=== PATIENT | female | born 1945 | race Caucasian/White ===

== ENCOUNTER 2025-07-18 12:36 | Emergency (ER) | payer MEDICARE, SELFPAY ==
--- NOTE | ~2025-07-18 | XR_ITS ---
EXAMINATION: XR pelvis 1-2V, 07/18/2025 13:05 WEB SITE ADMIN HISTORY: Fall last tues. Pain to posterior left pelvis area COMPARISON: No comparisons available. Findings: No acute fracture or malalignment. No significant degenerative changes. Soft tissues unremarkable. Impression: No acute fracture or malalignment. Reviewed, dictated and finalized at location P. SITE ADMIN Impression: No acute fracture or malalignment.
--- NOTE | ~2025-07-18 | XR_ITS ---
EXAMINATION: XR sacrum coccyx min 2V, 07/18/2025 13:05 TOOL PLANNER HISTORY: Fall last Thursday. Pain to posterior left pelvis area. COMPARISON: No comparisons available. Findings: No acute fracture or malalignment. No significant degenerative changes. Soft tissues unremarkable. Impression: No acute fracture or malalignment. Reviewed, dictated and finalized at location P. PLANNER Impression: No acute fracture or malalignment.
[2025-07-18 12:52] VITALS: BP 139/74; PULSE 84; RESP 18; TEMP 36.7; O2SAT 98
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
== END 2025-07-18 13:48 | disposition home or self-care (01) ==
PROVIDERS: Emergency Provider Registered Nurse; PCP Family Medicine
DX: M25.552 Pain in left hip (principal); J44.9 Chronic obstructive pulmonary disease, unspecified; I10 Essential (primary) hypertension; E11.9 Type 2 diabetes mellitus without complications; Z79.4 Long term (current) use of insulin; Z79.84 Long term (current) use of oral hypoglycemic drugs; Z79.85 Long-term (current) use of injectable non-insulin antidiabetic drugs; Z86.718 Personal history of other venous thrombosis and embolism; Z79.01 Long term (current) use of anticoagulants
CPT/HCPCS: 72170; 72220; 99204; G0463